=== PATIENT | male | born 1995 | race Caucasian/White ===

== ENCOUNTER → 2017-11-23 | Emergency (ER) | payer OTHER ==
[~2017-11-23] VITALS: Ht 175.3 cm; Wt 117.9 kg
[~2017-11-23] MED LIST: MOTRIN800 MG PO; NORFLEX100MG PO
== END | disposition left against medical advice (07) ==
LOC: ER 05:38
DX: Z53.20 Procedure and treatment not carried out because of patient's decision for unspecified reasons (principal)

== ENCOUNTER 2018-04-04 18:04 | Emergency (ER) | payer OTHER ==
[~2018-04-04] VITALS: Ht 175.3 cm; Wt 127.0 kg
== END 2018-04-04 19:06 | disposition home or self-care (01) ==
LOC: ER 18:04
DX: H66.92 Otitis media, unspecified, left ear (principal)